=== PATIENT | female | born 1995 | race Caucasian/White ===

== ENCOUNTER 2016-06-06 16:06 | Emergency (ER) | payer OTHER, MEDICAID ==
[~2016-06-06] VITALS: Ht 154.9 cm; Wt 55.2 kg
[2016-06-06] MEDS ORDERED: SODIUM CHLORIDE FLUSH 10 ML SYR IV PRN (16:40)
[2016-06-06] MEDS ORDERED: ONDANSETRON 2 MG/ML (Z0FRAN) 2 ML VIAL IV ONE (16:40)
[2016-06-06 17:58] VITALS: BP 128/77
== END 2016-06-06 17:59 | disposition home or self-care (01) ==
LOC: ED 16:09
DX: O26.891 Other specified pregnancy related conditions, first trimester (principal); R11.2 Nausea with vomiting, unspecified; O99.331 Smoking (tobacco) complicating pregnancy, first trimester; F17.210 Nicotine dependence, cigarettes, uncomplicated
CPT/HCPCS: 96361; 96374; 99283; J2405; J7030; 99281

== ENCOUNTER 2016-06-18 21:39 | Emergency (ER) | payer OTHER, MEDICAID ==
[~2016-06-18] VITALS: Ht 154.9 cm; Wt 56.0 kg
[2016-06-18] MEDS ORDERED: SODIUM CHLORIDE FLUSH 10 ML SYR IV PRN (22:25)
[2016-06-18] MEDS ORDERED: SODIUM CHLORIDE FLUSH 3 ML SYR IV PRN (22:25)
[2016-06-18 22:44] LABS: MEAN CORPUSCULAR HEMOGLOBIN 29.9 PG (26.0-34.0); MEAN CORPUSCULAR VOLUME 82 FL (80-100); MEAN PLATELET VOLUME 9.5 FL (6.0-9.5); PLATELET COUNT 272 10^3uL (150-450); WHITE BLOOD COUNT 7.92 10^3uL (4.0-11.0)
[2016-06-18 22:47] LABS: MEAN CORPUSCULAR HGB CONC 36.5 g/dL (31.0-37.0)
[2016-06-18] MEDS ORDERED: ONDANSETRON 2 MG/ML (Z0FRAN) 2 ML VIAL IV ONE (22:50)
[2016-06-18 22:55] LABS: ALBUMIN 3.3 g/dL (3.4-5.0); ANION GAP 13.2 MEQ/L (3-15); CALCULATED IONIZED CALCIUM 3.9 mg/dL (3.8-4.6); TOTAL PROTEIN 6.3 g/dL (6.4-8.5)
--- NOTE | 2016-06-18 23:22 | NUR ---
INFORMED PATIENT THE NEED FOR URINE SPECIMEN. PT UNABLE TO VOID AT THIS TIME. WILL CHECK BACK LATER. CALL LIGHT WITHIN REACH.
--- NOTE | 2016-06-18 23:30 | NUR ---
PT C/O TERELL MILTON MADE AWARE.
[2016-06-18] MEDS ORDERED: ACETAMINOPHEN 325 MG TAB (TYLENOL) PO ONE (23:35)
[2016-06-19 00:07] LABS: BILIRUBIN,URINE Negative (Negative); CLARITY,URINE Clear; COLOR,URINE Yellow; GLUCOSE, URINE (UA) Negative (Negative); LEUKOCYTE ESTERASE ,URINE Negative (Negative); PH,URINE 6.5 (5.0 - 8.0); UROBILINOGEN,URINE 0.2 mg/dL (0.2-1.0)
[2016-06-19 00:26] LABS: BAND NEUTROPHILS % 0 % (0-6); LYMPHOCYTES # 1.3 #; MONOCYTES # 0.1 #; MONOCYTES % 1 % (3-11); RBC MORPH NORMAL (NORMAL); SEGMENTED NEUTROPHILS % 80 % (51-67); TOTAL CELLS COUNTED 100
[2016-06-19 00:29] LABS: INFLUENZA VIRUS TYPE A ANTIBOD Negative (NEGATIVE); INFLUENZA VIRUS TYPE B ANTIBOD Negative (NEGATIVE)
[2016-06-19 01:11] VITALS: BP 97/44
--- NOTE | 2016-06-19 01:13 | NUR ---
PT UNABLE TO PRODUCE A STOOL SPECIMEN- TEST CANCELED
== END 2016-06-19 01:14 | disposition home or self-care (01) ==
LOC: ED 21:40
DX: O26.892 Other specified pregnancy related conditions, second trimester (principal); A08.4 Viral intestinal infection, unspecified; Z3A.15 15 weeks gestation of pregnancy
CPT/HCPCS: 36415; 80053; 81003; 85025; 87502; 96361; 96374; 99284; J2405; J7030; 99282

== ENCOUNTER 2016-06-27 19:08 | Emergency (ER) | payer OTHER, MEDICAID ==
[~2016-06-27] VITALS: Ht 154.9 cm; Wt 55.7 kg
--- NOTE | 2016-06-27 19:30 | NUR ---
Straight cath ua, pt did not tolerate well, no blood noted in shahid area.
[2016-06-27] MEDS ORDERED: HYDROmorphone 1 MG/ML (DILAUDID) SYRINGE IM ONE (20:10)
[2016-06-27 20:28] LABS: BILIRUBIN,URINE Negative (Negative); COLOR,URINE Yellow; GLUCOSE, URINE (UA) Negative (Negative); LEUKOCYTE ESTERASE ,URINE Negative (Negative)
[2016-06-27 20:30] LABS: BASOPHILS % (AUTO) 1 % (0-2); EOSINOPHILS # (AUTO) 0.3 10^3uL; EOSINOPHILS % (AUTO) 3 % (0-4); MEAN CORPUSCULAR HEMOGLOBIN 29.4 PG (26.0-34.0); MEAN CORPUSCULAR VOLUME 82 FL (80-100); MEAN PLATELET VOLUME 10.1 FL (6.0-9.5); MONOCYTES # (AUTO) 0.7 X10^3; MONOCYTES % (AUTO) 8 % (3-11); NEUTROPHILS # (AUTO) 5.9 X10^3; NEUTROPHILS % (AUTO) 66 % (51-67); PLATELET COUNT 339 10^3uL (150-450); WHITE BLOOD COUNT 8.87 10^3uL (4.0-11.0)
[2016-06-27 20:37] LABS: CLARITY,URINE Slightly Cloudy; URINE CENTRIFUGED VOLUME 12 mL
[2016-06-27 20:49] LABS: MEAN CORPUSCULAR HGB CONC 35.7 g/dL (31.0-37.0)
[2016-06-27] MEDS ORDERED: ED- ACETAMINOHEN/CODEINE 300MG/30 MG (TYLENOL #3) 6 TABLETS/BTL PO ONE (21:35)
[2016-06-27 21:51] VITALS: BP 105/60
== END 2016-06-27 21:53 | disposition home or self-care (01) ==
LOC: ED 19:09
DX: O20.9 Hemorrhage in early pregnancy, unspecified (principal); Z3A.16 16 weeks gestation of pregnancy
CPT/HCPCS: 36415; 76805; 81003; 81015; 84702; 85025; 96372; 99284; J1170; 99283

== ENCOUNTER 2016-07-01 13:04 | Emergency (ER) | payer OTHER, MEDICAID ==
[~2016-07-01] VITALS: Ht 154.9 cm; Wt 55.5 kg
--- NOTE | 2016-07-01 13:22 | NUR ---
PT STATES SHE IS UNABLE TO VOID FOR UA TO RULE OUT UTI AT THIS TIME. WHEN INFORMED DR DEAN WOULD LIKE A CATH IF UNABLE TO VOID, PT REFUSES TO ALLOW THAT STATING "ESTELA HAD THAT BEFORE I THATS NOT GOING TO HAPPEN AGAIN". PT FURTHER STATES SHE IS ALREADY ON ANTIBIOTICS RXD ON 06/21/16 FOR UTI SHE WAS UNABLE TO FILL UNTIL YEST. DR DEAN NOTIFIED. CL
[2016-07-01] MEDS ORDERED: ONDANSETRON 4 MG (ZOFRAN) ORAL DISSOLVE TAB PO ONE (13:30)
--- NOTE | 2016-07-01 14:04 | NUR ---
PT NOT HAVING ANY VAGINAL BLEEDING. ABLE TO LIE STILL FOR DR DEAN TO OBTAIN FHTS & AFTER HE LEAVES THE ROOM, PT ROLLS TO LT SIDE CURLED UP & MOANING. CL
[2016-07-01 14:46] VITALS: BP 128/76
== END 2016-07-01 14:25 | disposition home or self-care (01) ==
LOC: ED 13:06
DX: O26.892 Other specified pregnancy related conditions, second trimester (principal); G89.11 Acute pain due to trauma; R10.84 Generalized abdominal pain; W10.9XXA Fall (on) (from) unspecified stairs and steps, initial encounter; Y92.008 Other place in unspecified non-institutional (private) residence as the place of occurrence of the external cause; O99.332 Smoking (tobacco) complicating pregnancy, second trimester; F17.210 Nicotine dependence, cigarettes, uncomplicated; Z3A.17 17 weeks gestation of pregnancy
CPT/HCPCS: 99282; 99284

== ENCOUNTER 2016-07-02 20:24 | Emergency (ER) | payer OTHER, MEDICAID ==
[~2016-07-02] VITALS: Ht 157.5 cm; Wt 59.0 kg
[2016-07-02] MEDS ORDERED: ONDANSETRON 2 MG/ML (Z0FRAN) 2 ML VIAL IM ONE (21:00)
[2016-07-02] MEDS ORDERED: HYDROmorphone 2 MG/ML (DILAUDID) 1 ML SYRINGE IM ONE (21:00)
[2016-07-02 22:14] VITALS: BP 111/69
== END 2016-07-02 22:10 | disposition home or self-care (01) ==
LOC: ED 20:25
DX: O26.892 Other specified pregnancy related conditions, second trimester (principal); G43.909 Migraine, unspecified, not intractable, without status migrainosus; Z3A.00 Weeks of gestation of pregnancy not specified
CPT/HCPCS: 96372; 99282; J1170; J2405

== ENCOUNTER 2016-07-09 20:03 | Emergency (ER) | payer OTHER, MEDICAID ==
[~2016-07-09] VITALS: Ht 157.5 cm; Wt 59.6 kg
--- NOTE | 2016-07-09 20:19 | NUR ---
CALLED [facility] IN [facility] TO COME DO BREATHING TX
[2016-07-09] MEDS ORDERED: ALBUTEROL 0.083% NEB SOLUTION 2.5 MG/3 ML VIAL INH ONE ×2 (20:25→20:35)
[2016-07-09] MEDS ORDERED: diphenhydrAMINE 25 MG (BENADRYL) TABLET PO ONE (20:45)
[2016-07-09 20:53] VITALS: BP 122/67
== END 2016-07-09 20:59 | disposition home or self-care (01) ==
LOC: ED 20:04
DX: R06.4 Hyperventilation (principal); F41.9 Anxiety disorder, unspecified
CPT/HCPCS: 94640; 99282; 99283

== ENCOUNTER 2016-07-16 22:47 | Emergency (ER) | payer OTHER, MEDICAID ==
[~2016-07-16] VITALS: Ht 167.6 cm; Wt 65.0 kg
[2016-07-16] MEDS ORDERED: HYDROmorphone 1 MG/ML (DILAUDID) SYRINGE IM ONE (23:05)
[2016-07-16 23:28] LABS: BASOPHILS % (AUTO) 0 % (0-2); EOSINOPHILS # (AUTO) 0.4 10^3uL; EOSINOPHILS % (AUTO) 3 % (0-4); LYMPHOCYTES # (AUTO) 2.5 X10^3; MEAN CORPUSCULAR HEMOGLOBIN 29.4 PG (26.0-34.0); MEAN CORPUSCULAR HGB CONC 34.9 g/dL (31.0-37.0); MEAN CORPUSCULAR VOLUME 84 FL (80-100); MEAN PLATELET VOLUME 9.9 FL (6.0-9.5); MONOCYTES # (AUTO) 0.8 X10^3; MONOCYTES % (AUTO) 7 % (3-11); NEUTROPHILS # (AUTO) 7.6 X10^3; NEUTROPHILS % (AUTO) 67 % (51-67); PLATELET COUNT 268 10^3uL (150-450); WHITE BLOOD COUNT 11.24 10^3uL (4.0-11.0)
[2016-07-16 23:36] LABS: ALBUMIN 3.4 g/dL (3.4-5.0); ANION GAP 11.7 MEQ/L (3-15); CALCULATED IONIZED CALCIUM 3.9 mg/dL (3.8-4.6); TOTAL PROTEIN 6.6 g/dL (6.4-8.5)
--- NOTE | 2016-07-16 23:47 | NUR ---
PT REFUSING DILAUDID. AND IS REQUESTING FENTANYL. - AWARE.
--- NOTE | 2016-07-16 23:53 | NUR ---
PT ATTEMPTING URINE SPECIMEN
--- NOTE | 2016-07-17 | NUR ---
PHYSICIAN SPOKE WITH PATIENT ABOUT ANALGESICS. PATIENT BECAME UPSET AND WANTED TO LEAVE. PT TOLD NURSE THAT PATIENT IS LEAVING AMA.
--- NOTE | 2016-07-17 00:05 | NUR ---
CONFIRMED WITH PATIENT THAT SHE WAS REFUSING TO STAY FOR TREATMENT PHYSICIAN WAS WILLING TO PRESCRIBE. PT STATED THAT SHE DIDN'T WANT TO TAKE CODEINE. RN REMOVED IV - CANULA INTACT. PATIENT LEFT BEFORE SIGNING AMA PAPERS. PT AMBULATED OUT WITH BOYFRIEND.
[2016-07-17 00:29] VITALS: BP 110/65
== END 2016-07-17 00:15 | disposition left against medical advice (07) ==
LOC: ED 22:47
DX: O26.892 Other specified pregnancy related conditions, second trimester (principal); R10.2 Pelvic and perineal pain; Z76.5 Malingerer [conscious simulation]
CPT/HCPCS: 36415; 80053; 85025; 99282

== ENCOUNTER → 2016-07-16 | Outpatient (CLI) | payer OTHER, MEDICAID | LOC: EMS 22:45 | PROVIDERS: ATTEND Family Medicine | DX: R10.84 Generalized abdominal pain (principal) ==

== ENCOUNTER 2016-07-21 20:55 | Emergency (ER) | payer OTHER, MEDICAID ==
[~2016-07-21] VITALS: Ht 167.6 cm; Wt 58.7 kg
--- NOTE | 2016-07-21 21:20 | NUR ---
Pt told that Dr. Fabian is in a room and will be here with her shortly
--- NOTE | 2016-07-21 21:53 | NUR ---
Pt called out and RN went in to see pt, pt asked for something for her headache, explained to her that the DR. would have to see her first and evaluate her first.
--- NOTE | 2016-07-21 22:10 | NUR ---
Pt states that she wants to leave, "because it's been an hour and no one is doing anything". Pt given AMA papers to sign and Dr. Fabian was notified.
[2016-07-21 22:19] VITALS: BP 109/55
== END 2016-07-21 22:15 | disposition left against medical advice (07) ==
LOC: ED 20:56
DX: R51 Headache (principal); R11.2 Nausea with vomiting, unspecified; Z53.21 Procedure and treatment not carried out due to patient leaving prior to being seen by health care provider
CPT/HCPCS: 99283

== ENCOUNTER 2016-07-21 23:02 | Emergency (ER) | payer OTHER, MEDICAID ==
[~2016-07-21] VITALS: Ht 167.6 cm; Wt 57.0 kg
[~2016-07-21 23:02] MED LIST: AC500T PO; ACET-789 PO; ACET1TAB43 PO; ALB0.5V INH; ALBU6.7H IH; ALBU8.5H2 IH; ALBU8.5H4; ALBU8.5H4 IH; AMOX500T2 PO; AMOX875T2 PO; AZIT250T81 PO; BENZ-22 PO; BENZ2TAB6 PO; CEPH-331 PO; CEPH500C PO; CITA10TA12 PO; CITA20SO PO; CITA20TA12 PO; CITA40TA19 PO; CRAN500C3 PO; DIPH1TAB25 PO; ESCI20TA PO; IRON1TAB95 PO; LORA0.5T PO; METH4TAB27 PO; NAPR500T PO; NEOM10DR9 LEFT EAR; NF-CIPROHC OT; NF-LAM100T; No Home Meds; ONDA-50 PO; ONDA4TAB41 PO; ONDAN4ODT PO; PRED20TA PO; PREN-108 PO; PREN1TAB71 PO; SULF1TAB35 PO; TRM50T PO; [UNRECOGNIZED DRUG - CODE] IR; no home medications
[2016-07-21] MEDS ORDERED: fentaNYL 100 MCG/2 ML VIAL IV ONE (23:40)
[2016-07-21] MEDS ORDERED: ONDANSETRON 2 MG/ML (Z0FRAN) 2 ML VIAL IV ONE (23:40)
[2016-07-21] MEDS ORDERED: NS IV 500 ML 500 ML IV SCH (23:40)
[2016-07-21] MEDS ORDERED: diphenhydrAMINE 50 MG/ML INJ (BENADRYL) IV ONE (23:40)
--- NOTE | 2016-07-22 | NUR ---
Pt is responsive and is asking what meds she was prescribed as well as what the doses of each were. Pt was in her room sleeping on her side when I went in to give her medications. Pt appears calm and relaxed.
[2016-07-22 00:36] VITALS: BP 106/64
[2016-07-23] MEDS ORDERED: AMOX500C5 PO (13:28)
== END 2016-07-22 00:32 | disposition home or self-care (01) ==
LOC: ED 23:03
DX: O26.899 Other specified pregnancy related conditions, unspecified trimester (principal); G43.909 Migraine, unspecified, not intractable, without status migrainosus; R06.4 Hyperventilation; O99.330 Smoking (tobacco) complicating pregnancy, unspecified trimester; F17.210 Nicotine dependence, cigarettes, uncomplicated; Z3A.00 Weeks of gestation of pregnancy not specified
CPT/HCPCS: 96361; 96374; 96375; 99285; J1200; J2405; J3010; J7040; 99282

== ENCOUNTER → 2016-07-21 | Outpatient (CLI) | payer OTHER, MEDICAID | LOC: EMS 23:05 | PROVIDERS: ATTEND Family Medicine | DX: R41.82 Altered mental status, unspecified (principal); R55 Syncope and collapse; R06.4 Hyperventilation; Z3A.20 20 weeks gestation of pregnancy ==

== ENCOUNTER → 2016-07-23 | Outpatient (CLI) | payer OTHER, MEDICAID ==
[2016-07-23 13:29] VITALS: BP 124/82
== END ==
LOC: MHUC 13:05
PROVIDERS: ATTEND Nurse Practitioner
DX: J32.9 Chronic sinusitis, unspecified (principal)
CPT/HCPCS: 99213

== ENCOUNTER 2016-07-25 21:39 | Emergency (ER) | payer OTHER, MEDICAID ==
[~2016-07-25] VITALS: Ht 154.9 cm; Wt 61.4 kg
--- NOTE | 2016-07-25 21:45 | NUR ---
Pt arrives via EMS with complaint of seizure per S/O that lasted approximately 50-90 seconds. Upon arrival pt awake and alert. Pt uncooperative and will not answer questions or assist with care.
[2016-07-25 22:39] LABS: BASOPHILS % (AUTO) 1 % (0-2); EOSINOPHILS # (AUTO) 0.2 10^3uL; EOSINOPHILS % (AUTO) 3 % (0-4); LYMPHOCYTES # (AUTO) 1.2 X10^3; MEAN CORPUSCULAR HEMOGLOBIN 29.2 PG (26.0-34.0); MEAN CORPUSCULAR HGB CONC 34.2 g/dL (31.0-37.0); MEAN CORPUSCULAR VOLUME 86 FL (80-100); MEAN PLATELET VOLUME 9.8 FL (6.0-9.5); MONOCYTES # (AUTO) 0.9 X10^3; MONOCYTES % (AUTO) 11 % (3-11); NEUTROPHILS # (AUTO) 5.5 X10^3; NEUTROPHILS % (AUTO) 70 % (51-67); PLATELET COUNT 292 10^3uL (150-450)
[2016-07-25] MEDS ORDERED: ONDANSETRON 4 MG (ZOFRAN) ORAL DISSOLVE TAB PO ONE (22:40)
[2016-07-25 22:46] LABS: ALBUMIN 3.3 g/dL (3.4-5.0); CALCULATED IONIZED CALCIUM 3.9 mg/dL (3.8-4.6); TOTAL PROTEIN 6.6 g/dL (6.4-8.5)
[2016-07-25 22:48] LABS: BILIRUBIN,URINE Negative (Negative); CLARITY,URINE Clear; COLOR,URINE Yellow; GLUCOSE, URINE (UA) Negative (Negative); LEUKOCYTE ESTERASE ,URINE Negative (Negative); UROBILINOGEN,URINE 0.2 mg/dL (0.2-1.0)
[2016-07-25 22:56] LABS: AMPHETAMINE SCREEN, URINE Negative (Negative)
[2016-07-25 22:57] LABS: CANNABINOID SCREEN, URINE Negative (Negative); METHAMPHETAMINE SCREEN URINE S NEGATIVE (NEGATIVE); OPIATE SCREEN URINE Negative (Negative); PROPOXYPHENE STAT NEGATIVE (NEGATIVE)
[2016-07-26 05:12] VITALS: BP 107/64
== END 2016-07-25 23:55 | disposition home or self-care (01) ==
LOC: ED 21:40
DX: O26.892 Other specified pregnancy related conditions, second trimester (principal); O99.332 Smoking (tobacco) complicating pregnancy, second trimester; F17.210 Nicotine dependence, cigarettes, uncomplicated; Z3A.20 20 weeks gestation of pregnancy
CPT/HCPCS: 36415; 51701; 80053; 80307; 81003; 85025; 99283

== ENCOUNTER → 2016-07-25 | Outpatient (CLI) | payer OTHER, MEDICAID | LOC: EMS 21:38 | PROVIDERS: ATTEND Family Medicine | DX: G40.802 Other epilepsy, not intractable, without status epilepticus (principal) ==

== ENCOUNTER 2016-07-30 23:40 | Outpatient (CLI) | payer OTHER, MEDICAID ==
[~2016-07-30] VITALS: Ht 154.9 cm; Wt 61.0 kg
[2016-07-30] MEDS ORDERED: ONDANSETRON 2 MG/ML (Z0FRAN) 2 ML VIAL IV ONE (23:45)
[2016-07-30] MEDS ORDERED: SODIUM CHLORIDE FLUSH 10 ML SYR IV PRN (23:45)
[2016-07-31 01:05] VITALS: BP 109/61
== END 2016-07-31 01:08 | disposition home or self-care (01) ==
LOC: EUOP 23:41 → ED 23:41 → OB 07-31 00:34 → EUOP 07-31 01:08
PROVIDERS: ATTEND Family Medicine
DX: O26.892 Other specified pregnancy related conditions, second trimester (principal); Z3A.21 21 weeks gestation of pregnancy; R10.84 Generalized abdominal pain
CPT/HCPCS: 99201

== ENCOUNTER → 2016-07-30 | Outpatient (CLI) | payer OTHER, MEDICAID ==
[2016-07-30 12:14] VITALS: BP 108/63
== END ==
LOC: MHUC 12:07
PROVIDERS: ATTEND Nurse Practitioner
DX: H61.22 Impacted cerumen, left ear (principal)
CPT/HCPCS: 99213

== ENCOUNTER 2016-07-31 01:11 | Emergency (ER) | payer OTHER, MEDICAID ==
[~2016-07-31] VITALS: Ht 154.9 cm; Wt 60.1 kg
[2016-07-31] MEDS ORDERED: ONDANSETRON 2 MG/ML (Z0FRAN) 2 ML VIAL IV ONE (01:30)
[2016-07-31] MEDS ORDERED: SODIUM CHLORIDE FLUSH 10 ML SYR IV PRN (01:30)
[2016-07-31] MEDS ORDERED: ACETAMINOPHEN 500 MG TAB (TYLENOL) PO ONE (01:30)
[2016-07-31 01:47] LABS: BASOPHILS % (AUTO) 0 % (0-2); EOSINOPHILS # (AUTO) 0.2 10^3uL; EOSINOPHILS % (AUTO) 2 % (0-4); LYMPHOCYTES # (AUTO) 1.8 X10^3; MEAN CORPUSCULAR HEMOGLOBIN 29.1 PG (26.0-34.0); MEAN CORPUSCULAR HGB CONC 34.1 g/dL (31.0-37.0); MEAN CORPUSCULAR VOLUME 85 FL (80-100); MEAN PLATELET VOLUME 9.8 FL (6.0-9.5); MONOCYTES # (AUTO) 0.7 X10^3; MONOCYTES % (AUTO) 6 % (3-11); NEUTROPHILS % (AUTO) 77 % (51-67); PLATELET COUNT 318 10^3uL (150-450); WHITE BLOOD COUNT 11.71 10^3uL (4.0-11.0)
[2016-07-31 01:48] LABS: BILIRUBIN,URINE Negative (Negative); COLOR,URINE Yellow; GLUCOSE, URINE (UA) Negative (Negative); LEUKOCYTE ESTERASE ,URINE 1+ (Negative); PH,URINE 7.5 (5.0 - 8.0); UROBILINOGEN,URINE 0.2 mg/dL (0.2-1.0)
[2016-07-31 01:54] LABS: CLARITY,URINE Slightly Cloudy; URINE CENTRIFUGED VOLUME 12 mL
[2016-07-31 01:55] LABS: RBC,URINE 0-2 /HPF
[2016-07-31 01:59] LABS: ALBUMIN 3.5 g/dL (3.4-5.0); ANION GAP 10.1 MEQ/L (3-15); CALCULATED IONIZED CALCIUM 3.7 mg/dL (3.8-4.6); TOTAL PROTEIN 6.8 g/dL (6.4-8.5)
[2016-07-31 02:51] VITALS: BP 97/55
== END 2016-07-31 02:50 | disposition home or self-care (01) ==
LOC: ED 01:12
DX: O26.892 Other specified pregnancy related conditions, second trimester (principal); K29.00 Acute gastritis without bleeding; O21.2 Late vomiting of pregnancy; Z3A.21 21 weeks gestation of pregnancy
CPT/HCPCS: 36415; 80053; 81003; 81015; 85025; 86140; 87088; 99284; J2405; J7030; 96361; 96374; 99282

== ENCOUNTER 2016-08-13 21:56 | Emergency (ER) | payer OTHER, MEDICAID ==
[~2016-08-13] VITALS: Ht 154.9 cm; Wt 62.2 kg
[~2016-08-13 21:56] MED LIST changes: +AMOX500C5 PO
[2016-08-13] MEDS ORDERED: diphenhydrAMINE 50 MG/ML INJ (BENADRYL) IM ONE (22:45)
[2016-08-13 22:54] LABS: BILIRUBIN,URINE Negative (Negative); CLARITY,URINE Clear; COLOR,URINE Yellow; GLUCOSE, URINE (UA) Negative (Negative); LEUKOCYTE ESTERASE ,URINE Negative (Negative); UROBILINOGEN,URINE 0.2 mg/dL (0.2-1.0)
--- NOTE | 2016-08-13 22:54 | NUR ---
Pt has not vomited since she has been here. Pt and boyfriend have been laying in the bed together. PT appears to be sleeping on and off.
[2016-08-13 22:57] LABS: BASOPHILS % (AUTO) 0 % (0-2); EOSINOPHILS # (AUTO) 0.3 10^3uL; EOSINOPHILS % (AUTO) 3 % (0-4); LYMPHOCYTES # (AUTO) 2.2 X10^3; MEAN CORPUSCULAR HEMOGLOBIN 29.4 PG (26.0-34.0); MEAN CORPUSCULAR HGB CONC 34.2 g/dL (31.0-37.0); MEAN CORPUSCULAR VOLUME 86 FL (80-100); MONOCYTES # (AUTO) 0.9 X10^3; MONOCYTES % (AUTO) 8 % (3-11); NEUTROPHILS # (AUTO) 7.8 X10^3; NEUTROPHILS % (AUTO) 69 % (51-67); PLATELET COUNT 305 10^3uL (150-450); WHITE BLOOD COUNT 11.31 10^3uL (4.0-11.0)
[2016-08-13 23:07] LABS: ALBUMIN 3.5 g/dL (3.4-5.0); ANION GAP 12.2 MEQ/L (3-15); CALCULATED IONIZED CALCIUM 3.9 mg/dL (3.8-4.6); TOTAL PROTEIN 6.8 g/dL (6.4-8.5)
[2016-08-13 23:30] LABS: AMPHETAMINE SCREEN, URINE Negative (Negative); CANNABINOID SCREEN, URINE Negative (Negative); METHAMPHETAMINE SCREEN URINE S NEGATIVE (NEGATIVE); OPIATE SCREEN URINE Negative (Negative); PROPOXYPHENE STAT NEGATIVE (NEGATIVE)
[2016-08-14 00:17] VITALS: BP 106/65
== END 2016-08-13 23:50 | disposition home or self-care (01) ==
LOC: EDUNIT# 21:56 → ED 21:58
DX: O26.892 Other specified pregnancy related conditions, second trimester (principal); K92.0 Hematemesis; G43.909 Migraine, unspecified, not intractable, without status migrainosus; O99.012 Anemia complicating pregnancy, second trimester; Z3A.23 23 weeks gestation of pregnancy
CPT/HCPCS: 36415; 80053; 80307; 81003; 85025; 85610; 86140; 96372; 99283; J1200

== ENCOUNTER 2016-08-19 21:18 | Emergency (ER) | payer OTHER, MEDICAID ==
[~2016-08-19] VITALS: Ht 154.9 cm; Wt 61.9 kg
[2016-08-19] MEDS ORDERED: ONDANSETRON 2 MG/ML (Z0FRAN) 2 ML VIAL IV ONE (21:30)
[2016-08-19] MEDS ORDERED: PANTOPRAZOLE IV 40 MG in SODIUM CHLORIDE FLUSH 10 ML IV ONE (21:40)
[2016-08-19] MEDS ORDERED: SODIUM CHLORIDE FLUSH 10 ML SYR IV PRN (21:50)
[2016-08-19 22:02] LABS: BASOPHILS % (AUTO) 0 % (0-2); EOSINOPHILS # (AUTO) 0.3 10^3uL; EOSINOPHILS % (AUTO) 3 % (0-4); LYMPHOCYTES # (AUTO) 2.3 X10^3; MEAN CORPUSCULAR HEMOGLOBIN 29.1 PG (26.0-34.0); MEAN CORPUSCULAR HGB CONC 34.2 g/dL (31.0-37.0); MEAN CORPUSCULAR VOLUME 85 FL (80-100); MEAN PLATELET VOLUME 9.7 FL (6.0-9.5); MONOCYTES # (AUTO) 0.8 X10^3; MONOCYTES % (AUTO) 7 % (3-11); NEUTROPHILS # (AUTO) 8.3 X10^3; NEUTROPHILS % (AUTO) 70 % (51-67); PLATELET COUNT 323 10^3uL (150-450); WHITE BLOOD COUNT 11.72 10^3uL (4.0-11.0)
[2016-08-19 22:33] LABS: ALBUMIN 3.6 g/dL (3.4-5.0); CALCULATED IONIZED CALCIUM 3.7 mg/dL (3.8-4.6); TOTAL PROTEIN 6.9 g/dL (6.4-8.5)
[2016-08-19 22:37] LABS: BILIRUBIN,URINE Negative (Negative); CLARITY,URINE Clear; COLOR,URINE Yellow; GLUCOSE, URINE (UA) Negative (Negative); LEUKOCYTE ESTERASE ,URINE Negative (Negative); UROBILINOGEN,URINE 0.2 mg/dL (0.2-1.0)
[2016-08-19 22:39] LABS: AMPHETAMINE SCREEN, URINE Negative (Negative); CANNABINOID SCREEN, URINE Negative (Negative); METHAMPHETAMINE SCREEN URINE S NEGATIVE (NEGATIVE); OPIATE SCREEN URINE Negative (Negative); PROPOXYPHENE STAT NEGATIVE (NEGATIVE)
[2016-08-19 22:40] LABS: ANION GAP 12.5 MEQ/L (3-15)
[2016-08-19] MEDS ORDERED: RANI150T15 PO (22:53)
[2016-08-19] MEDS ORDERED: ACETAMINOPHEN 500 MG TAB (TYLENOL) PO ONE (22:55)
[2016-08-19] MEDS ORDERED: ACETAMINOPHEN 500 MG TAB (TYLENOL) ONE (22:56)
[2016-08-19 23:30] VITALS: BP 124/74
== END 2016-08-19 23:41 | disposition home or self-care (01) ==
LOC: ED 21:19
DX: O26.892 Other specified pregnancy related conditions, second trimester (principal); K29.70 Gastritis, unspecified, without bleeding; O99.332 Smoking (tobacco) complicating pregnancy, second trimester; Z3A.24 24 weeks gestation of pregnancy
CPT/HCPCS: 36415; 80053; 80307; 81003; 83690; 85025; 96361; 96374; 96375; 99284; C9113; J2405; J7030; 99283

== ENCOUNTER 2016-08-29 23:02 | Outpatient (CLI) | payer OTHER, MEDICAID ==
[~2016-08-29] VITALS: Ht 154.9 cm; Wt 61.8 kg
[~2016-08-29 23:02] MED LIST changes: +RANI150T15 PO
[2016-08-29 23:12] VITALS: BP 121/57
[2016-08-29] MEDS ORDERED: CITA10TA12 PO (23:27)
== END 2016-08-29 23:45 | disposition home or self-care (01) ==
LOC: EUOP 23:02 → OB 23:03 → EUOP 23:45
PROVIDERS: ATTEND Obstetrics & Gynecology
DX: O26.892 Other specified pregnancy related conditions, second trimester (principal); Z3A.25 25 weeks gestation of pregnancy; R10.84 Generalized abdominal pain
CPT/HCPCS: 99202

== ENCOUNTER 2016-09-18 20:46 | Emergency (ER) | payer OTHER, MEDICAID ==
[~2016-09-18] VITALS: Ht 154.9 cm; Wt 64.0 kg
[2016-09-18 21:28] LABS: MEAN CORPUSCULAR HEMOGLOBIN 27.6 PG (26.0-34.0); MEAN CORPUSCULAR VOLUME 84 FL (80-100); MEAN PLATELET VOLUME 9.7 FL (6.0-9.5); PLATELET COUNT 285 10^3uL (150-450); WHITE BLOOD COUNT 9.98 10^3uL (4.0-11.0)
--- NOTE | 2016-09-18 22:10 | NUR ---
pt is resting on her side, boyfriend is at the bedside, pt has had no seizure activity since arrival
--- NOTE | 2016-09-18 22:55 | NUR ---
pt is awake, teary eyed, boyfriend able to take pt home
[2016-09-18 23:22] VITALS: BP 113/62
== END 2016-09-18 23:00 | disposition home or self-care (01) ==
LOC: ED 20:48
DX: O99.011 Anemia complicating pregnancy, first trimester (principal); Z63.8 Other specified problems related to primary support group; Z3A.01 Less than 8 weeks gestation of pregnancy
CPT/HCPCS: 36415; 80048; 85025; 99282; 99283

== ENCOUNTER 2016-09-23 22:26 | Outpatient (CLI) | payer OTHER, MEDICAID ==
[~2016-09-23] VITALS: Ht 160 cm; Wt 65.0 kg
[2016-09-23 22:40] VITALS: BP 121/56
[2016-09-23] MEDS ORDERED: ONDANSETRON 4 MG (ZOFRAN) ORAL DISSOLVE TAB PO ONE (23:35)
[2016-09-23] MEDS ORDERED: ONDANSETRON 4 MG (ZOFRAN) ORAL DISSOLVE TAB ONE (23:36)
== END 2016-09-23 23:45 ==
LOC: OB 22:26 → EUOP 22:26
PROVIDERS: ATTEND Family Medicine
DX: O47.03 False labor before 37 completed weeks of gestation, third trimester (principal); Z3A.29 29 weeks gestation of pregnancy
CPT/HCPCS: 99201

== ENCOUNTER 2016-09-25 19:29 | Outpatient (CLI) | payer OTHER, MEDICAID ==
[~2016-09-25] VITALS: Ht 160 cm; Wt 65.0 kg
[2016-09-25 19:41] VITALS: BP 110/61
[2016-09-25] MEDS ORDERED: ACETAMINOPHEN 500 MG TAB (TYLENOL) PO ONE (20:10)
== END 2016-09-25 20:55 | disposition home or self-care (01) ==
LOC: OB 19:29 → EUOP 19:29
PROVIDERS: ATTEND Family Medicine
DX: O47.03 False labor before 37 completed weeks of gestation, third trimester (principal); Z3A.29 29 weeks gestation of pregnancy
CPT/HCPCS: 99202

== ENCOUNTER 2016-09-28 20:56 | Outpatient (CLI) | payer OTHER, MEDICAID ==
[~2016-09-28] VITALS: Ht 160 cm; Wt 65.0 kg
[2016-09-28 21:11] VITALS: BP 143/68
== END 2016-09-28 21:50 | disposition home or self-care (01) ==
LOC: EUOP 20:56 → OB 20:56 → EUOP 21:50
PROVIDERS: ATTEND Family Medicine
DX: O47.03 False labor before 37 completed weeks of gestation, third trimester (principal); Z3A.29 29 weeks gestation of pregnancy
CPT/HCPCS: 99201